=== PATIENT | female | born 1960 | race Caucasian/White ===

== ENCOUNTER 2021-06-12 01:27 | Day surgery (SDC) | payer BC, SELFPAY ==
[2021-05-28 10:53] VITALS: BMI 34.5
--- NOTE | 2021-06-11 12:59 | P.HP_ITS ---
History of Present Illness History of Present Illness Consent: Risks, benefits, and alternatives have been discussed and questions answered. Patient agrees to proceed with procedure. Chief complaint: hx of colon polyps Narrative: Candice Diaz is a 60 year old female here for colon cancer screening. 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 Spiritual care concerns: No Meds Home Medications and Allergies Home Medications Medication Instructions Recorded Confirmed Type aspirin 81 mg tablet,delayed 81 mg PO DAILY 02/06/20 05/28/21 History release fenofibrate 160 mg tablet 160 mg PO DAILY 02/06/20 05/28/21 History metformin 1,000 mg tablet 1,000 mg PO DAILY 02/06/20 05/28/21 History metoprolol tartrate 50 mg tablet 50 mg PO BID 02/06/20 05/28/21 History simvastatin 40 mg tablet 40 mg PO DAILY 02/06/20 05/28/21 History triamterene 37.5 1 cap PO DAILY 02/06/20 05/28/21 History mg-hydrochlorothiazide 25 mg capsule calcium carbonate-vitamin D3 600 1 tablet PO DAILY 02/07/20 05/28/21 History mg (1,500 mg)-800 unit tablet cinnamon bark 500 mg capsule 1,000 mg PO DAILY cap 02/07/20 05/28/21 History triamterene-hydrochlorothiazid tablet 05/28/21 History Allergies Allergy/AdvReac Type Severity Reaction Status Date / Time Penicillins Allergy Intermediate Unknown Verified 06/12/21 06:20 epinephrine Allergy Mild Unknown Verified 06/12/21 06:20 [From Xylocaine with Epinephrine] lidocaine Allergy Mild Unknown Verified 06/12/21 06:20 [From Xylocaine with Epinephrine] Exam Resp: Auscultation: clear to auscultation bilaterally Cardio: Rate: regular rate Rhythm: regular rhythm GI: GI Palp: Yes Soft to palpation and No Tenderness to palpation present (GI) Assessment and Plan Assessment and plan (1) Colon cancer screening: Code(s): Z12.11 - Encounter for screening for malignant neoplasm of colon Status: Acute Assessment and Plan: Colonoscopy with possible biopsy or polypectomy or cautery or injection of substances.
[2021-06-12 06:22] VITALS: BP 118/71; PULSE 64; RESP 18; TEMP 36.9; O2SAT 98; BMI 34.5
[2021-06-12] MEDS: LACTATED RINGERS 1,000 ML 150 ML IV CONT (06:35)
[2021-06-12 06:40] LABS: Glucose Point of Care 146 mg/dl (65-105)
--- NOTE | 2021-06-12 07:16 | WPDANESEPPF ---
Anes - Initial Pre Proc Eval Procedure: Operation Date: 06/12/21 07:30 Proposed Procedures p Screening Colonoscopy - Jet Simental MD Date/Time: 06/12/21 07:16 Surgeon: Jet Simental MD Pre Op Diagnosis: hx of colon polyps Patient Data Age: 60 Gender: F Height: 1.7 m Weight: 100 kg Last Vital Signs Temp 98.4 F 06/12/21 06:22 Pulse 64 06/12/21 06:22 Resp 18 06/12/21 06:22 BP 118/71 06/12/21 06:22 Pulse Ox 98 06/12/21 06:22 Allergies Allergy/AdvReac Type Severity Reaction Status Date / Time Penicillins Allergy Intermediate Unknown Verified 06/12/21 06:20 epinephrine Allergy Mild Unknown Verified 06/12/21 06:20 [From Xylocaine with Epinephrine] lidocaine Allergy Mild Unknown Verified 06/12/21 06:20 [From Xylocaine with Epinephrine] Home Medications Medication Instructions Recorded Confirmed Type aspirin 81 mg tablet,delayed 81 mg PO DAILY 02/06/20 05/28/21 History release fenofibrate 160 mg tablet 160 mg PO DAILY 02/06/20 05/28/21 History metformin 1,000 mg tablet 1,000 mg PO DAILY 02/06/20 05/28/21 History metoprolol tartrate 50 mg tablet 50 mg PO BID 02/06/20 05/28/21 History simvastatin 40 mg tablet 40 mg PO DAILY 02/06/20 05/28/21 History triamterene 37.5 1 cap PO DAILY 02/06/20 05/28/21 History mg-hydrochlorothiazide 25 mg capsule calcium carbonate-vitamin D3 600 1 tablet PO DAILY 02/07/20 05/28/21 History mg (1,500 mg)-800 unit tablet cinnamon bark 500 mg capsule 1,000 mg PO DAILY cap 02/07/20 05/28/21 History triamterene-hydrochlorothiazid tablet 05/28/21 History Laboratory Tests 06/12/21 06:30 POC Capillary Glucose 146 mg/dl H mg/dl (65-105) Patient hx anesthesia problems: none Family hx anesthesia problems: none Results Review: All pre-operative results and documents have been reviewed as part of the pre-operative evaluation. 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 Informed Consent: The patient's anesthetic plan and its attendant risks and benefits were discussed with the patient/family/POA. Questions were solicited and answers provided to the satisfaction of the patient/family/POA.
[2021-06-12 07:58] VITALS: BP 99/55; PULSE 72; RESP 18; O2SAT 95
[2021-06-12 08:08] VITALS: BP 101/51; PULSE 67; RESP 22; O2SAT 97
[2021-06-12 08:18] VITALS: BP 120/67; PULSE 65; RESP 18; O2SAT 96
== END 2021-06-12 08:23 | disposition home or self-care (01) ==
PROVIDERS: PCP Internal Medicine; Visit Provider Internal Medicine Gastroenterology
PROC: 0DJD8ZZ Inspection of Lower Intestinal Tract, Via Natural or Artificial Opening Endoscopic (ICD-10-PCS; CPT 45378; principal; 2021-06-12 07:30)
DX: Z12.11 Encounter for screening for malignant neoplasm of colon (principal); K57.30 Diverticulosis of large intestine without perforation or abscess without bleeding; K63.5 Polyp of colon; D12.2 Benign neoplasm of ascending colon; Z79.82 Long term (current) use of aspirin; Z79.84 Long term (current) use of oral hypoglycemic drugs; E78.49 Other hyperlipidemia; I10 Essential (primary) hypertension; K76.0 Fatty (change of) liver, not elsewhere classified; E66.9 Obesity, unspecified; Z68.34 Body mass index [BMI] 34.0-34.9, adult
CPT/HCPCS: 45385; 45381; 82948; 88305; J2001; J2704; J7120

== ENCOUNTER 2023-07-21 10:00 | Outpatient (RCR) | payer BC, SELFPAY ==
--- NOTE | 2023-06-23 11:09 | PTOPEVAL1 ---
Assessment and note entered by Cinthia Rios, PT, DPT Evaluation Information Assessment Status Evaluation Diagnosis L sciatic nerve pain Onset 1 year Subjective Information Pt states her L sciatic nerve is irritating her badly. Pt states she has had the pain for about a year and it has gotten worse recently. She states she was given an injection and was put on prednisone, and is only taking 1200mg of ibuprofen daily, which has helped but its still there. Pt is very active around her home and she helps to take care of her mom. Pt states she cannot walk through the grocery store without an increase in pain. Reported Pain Level Pain Score 3: Self Report Assessment PT Clinical Summary Candice presents to therapy today for her initial evaluation with a diagnosis of L side sciatic nerve pain. Today she demonstrates mild hip weakness yvette and increased resistance with passive L sided hip motion. She ambulates with gait deviations including decreased gait speed, decreased active hip extension, and decreased stride length from expected. Skilled therapy services are indicated to address the compensations and deficits noted above from her chronic hip pain. Plan of Care Interventions Electrical Stimulation,Gait Training,Hot Pack/Cold Pack,Manual Therapy,Neuro Re-education,Patient/ Caregiver Educati,Therapeutic Activities, Therapeutic Exercise PT Services Indicated Yes Treatment Frequency and 1x/wk for 4 visits Duration These treatments will address the objective and functional deficits as defined above. The patient will be advanced safely and appropriately in order for the patient to progress towards his/her prior level of function. Additional exercises will be introduced and as well as a comprehensive home exercise program upon discharge, if needed, ?to ensure carryover of functional gains achieved in the clinic. This treatment plan has been reviewed and agreement upon by the patient.
--- NOTE | 2023-06-23 11:09 | OPREHPOC ---
Outpatient Therapy Plan of Care This is a Multidisciplinary Plan of Care that may contain components documented by all disciplines (PT, OT, and ST.) PT Problem 1 PT Problem #1 Knowledge Deficit PT Goal 1 Goal Pt to be IND with issued HEP Target Visit 4 PT Problem 2 PT Problem #2 Pain PT Goal 1 Goal Pt to report L sided leg pain no greater than 3/10 in the last week. Target Visit 4 PT Goal 2 Goal Pt to report 75% improvement in overall symptoms. Target Visit 4 PT Problem 3 PT Problem #3 Impaired Sensation PT Goal 1 Goal Pt to decline radicular symptoms in the last week Target Visit 4 PT Problem 4 PT Problem #4 Impaired Strength PT Goal 1 Goal Pt to improve yvette hip strength to grossly 4/5 Target Visit 4 PT Goal 2 Goal Pt to demonstrate a 20lb lift and carry without an increase in symptoms. Target Visit 4 PT Problem 5 PT Problem #5 Pain PT Goal 1 Goal Pt to be able to go grocery shopping without an increase in pain. Target Visit 4
--- NOTE | 2023-07-21 10:41 | PTOPDC ---
Assessment and note entered by Cinthia Rios, PT, DPT Evaluation Information Assessment Status Discharge Diagnosis L sciatic nerve pain Onset 1 year Subjective Information Pt states therapy has been terrific, she states she has learned so much. She states she has been able to wean off the pain medication most of the time. She has been able to work around the house more, and for longer periods of time before needing to sit and rest. Pt reports 90% improvement in overall symptoms. Reported Pain Level Pain Score 2: Self Report Assessment PT Clinical Summary Candice presents to therapy today for her progress report following 5 visits of skilled therapy to treat her diagnosis of L side sciatic nerve pain. Today she demonstrates improve L hip mobility and strength. She has met or progressed well towards her therapy goals, reports 90% improvement overall. She no longer requires skilled therapy services and will be discharged at this time. She was educted to continue her HEP upon discharge. Plan of Care PT Services Indicated No
== END 2023-07-22 11:51 | disposition home or self-care (01) ==
LOC: ANHGOSHPT 10:00
PROVIDERS: PCP Internal Medicine; Visit Provider Physician Assistant Surgical
DX: M53.3 Sacrococcygeal disorders, not elsewhere classified (principal)
CPT/HCPCS: 97014; 97110; 97140; 97161; 97530; G0283

== ENCOUNTER 2023-12-25 07:50 | Outpatient (CLI) | payer OTHER, SELFPAY ==
--- NOTE | 2023-12-25 08:46 | ECG_ITS ---
SEE SCANNED COPY FOR CONFIRMED REPORT MTDD
[2023-12-25 09:25] LABS: Basophils Absolute Auto 0.1 K/mm3 (0.0-0.1); Basophils Percent Auto 0.5 % (0.2-1.2); Eosinophils Absolute Auto 0.2 K/mm3 (0-0.3); Eosinophils Percent Auto 1.2 % (0-4.4); Hematocrit 47.1 % (37.0-47.0); Immature Granulocyte Absolute 0.07 K/mm3 (0.00-0.031); Immature Granulocyte Percent A 0.6 % (0-0.5); Lymphocytes Absolute Auto 3.99 K/mm3 (0.9-3.2); Lymphocytes Percent Auto 31.5 % (18.3-44.2); Mean Corpuscular Volume 94.2 fl (80-100); Mean Platelet Volume 9.5 fl (7.4-10.4); Monocytes Percent Auto 7.8 % (2.6-8.5); Neutrophils Absolute Auto 7.4 K/mm3 (1.3-6.7); Neutrophils Percent Auto 58.4 % (45.5-73.1); Platelet Count Result 297 k/mm3 (150-375); White Blood Count 12.7 K/mm3 (4.5-10.0)
[2023-12-25 09:33] LABS: Albumin Level 4.7 g/dL (3.5-5.1)
[2023-12-25 09:37] LABS: Anion Gap 6 mmol/L (4-12); Blood Urea Nitrogen 15 mg/dL (7-17); Calcium 9.5 mg/dL (8.4-10.2); Carbon Dioxide 31 mmol/L (22-30); Chloride 100 mmol/L (98-107); Estimated Glomerular Filt Rate > 60; Glucose 110 mg/dL (65-110); Potassium 3.7 mmol/L (3.4-5.0); Sodium 137 mmol/L (137-145)
[2023-12-25 09:44] LABS: Urine Cotinine POSITIVE
[2023-12-25 10:11] LABS: Hemoglobin A1C 6.9 % (<5.7)
== END 2023-12-25 07:51 | disposition home or self-care (01) ==
LOC: ANHSURGERY 07:54
PROVIDERS: Anesthesiology; PCP Internal Medicine; Visit Provider Orthopaedic Surgery
DX: Z01.818 Encounter for other preprocedural examination (principal); E11.9 Type 2 diabetes mellitus without complications; M16.12 Unilateral primary osteoarthritis, left hip; I45.19 Other right bundle-branch block
CPT/HCPCS: 36415; 80048; 80307; 82040; 83036; 85025; 86850; 86900; 86901; 93005

== ENCOUNTER 2024-02-12 09:29 | Outpatient (CLI) | payer OTHER, SELFPAY ==
[2024-02-12 10:17] LABS: Urine Cotinine NEGATIVE
== END 2024-02-12 09:30 | disposition home or self-care (01) ==
LOC: ANHSURGERY 09:31
PROVIDERS: PCP Internal Medicine; Visit Provider Orthopaedic Surgery
DX: M16.12 Unilateral primary osteoarthritis, left hip (principal); Z01.818 Encounter for other preprocedural examination
CPT/HCPCS: 80307

== ENCOUNTER 2024-02-15 01:12 | Day surgery (SDC) | payer OTHER, SELFPAY ==
[2023-12-25 08:02] VITALS: BMI 33.4
--- NOTE | 2023-12-25 08:22 | PC.NURSE ---
Report to the Outpatient Waiting Room, entrance under the green pavilion located off [facility], at time ___6:00 AM____ on date __01/06/24 . Planned Procedure Time: __7:30 AM . Time changes happen often and if your time is changed the preop area will call you the afternoon before. - You and your visitor will be asked to self-screen and do not enter if you have any COVID symptoms. - A mask is optional within the hospital at this time. Patients may have clear liquids (water, carbonated beverages, clear teas, apple juice) until 3 hours prior to surgery ( 4:30 AM)with a maximum of 20 ounces. - No food from midnight until time of surgery - Infants may have breast milk until 4 hours before surgery, infant formula 6 hours prior to surgery. - Children will be allowed to drink immediately following surgery. If applicable, please bring a bottle or sippy cup to assist with drinking. Juice, water, soda, and popsicles are readily available. For infants on formula, please bring formula the day of surgery. Pacifiers are allowed. Take the following medications with a SIP of water the morning of surgery: _METOPROLOL DO NOT STOP ANY OF YOUR OTHER PRESCRIPTION MEDICATIONS PRIOR TO SURGERY ?EXCEPT THE FOLLOWING Medications to discontinue per physician ___PT TO CALL DR PORRAS WHEN TO HOLD ADVIL. MAY TAKE TYLENOL IF NEEDED FOR PAIN__HOLD ALL VITAMINS AND SUPPLEMENTS 3 DAYS PRE O P.LAST DOSE 01/02/24 Please no make-up, nail maltese, hairspray, perfume, deodorant, or body powder the day of surgery. No jewelry (including any body piercings) or valuables the day of surgery, leave them at home. Please take a shower or bath the night before, or the morning of, surgery with an antibacterial soap. Wear comfortable, loose fitting clothing. Children are encouraged to wear pajamas. - Jewelry must be removed prior to entering the operating room. Rings and piercings that are not removed may be cut off. - The hospital will not accept responsibility for valuables. - Please leave all valuables, including medications, at home the day of surgery. If you are going home after surgery, a licensed seasonal driver must drive you home. - NO public transportation without another adult if you receive anesthesia. - We recommend that an adult stay with you for 24 hours following discharge. - We also recommend that you do not drive, make important decision, drink alcoholic beverages, or take any drugs that were not prescribed by your health care provider for at least 24 hours after your discharge time. Follow any additional instructions given to you from your surgeon. If you or anyone in your household have experienced Covid symptoms in the past week, please notify your surgeon or the nurse liaison at the phone number below for possible testing. VERBAL AND WRITTEN instructions given to ____PATIENT and asked if any additional questions and then verbalized understanding. Patient advised to call surgeon office or pre surgery nurse liaison [phone] if any additional questions.
[2023-12-25 08:47] VITALS: BP 118/72; PULSE 71; RESP 18; TEMP 37.2; O2SAT 97
--- NOTE | 2024-02-03 13:46 | PC.NURSE ---
Report to the Outpatient Waiting Room, entrance under the green pavilion located off [facility], at time __600AM on date __02/15/24 . Planned Procedure Time: _7:30 AM . Time changes happen often and if your time is changed the preop area will call you the afternoon before. - You and your visitor will be asked to self-screen and do not enter if you have any COVID symptoms. - A mask is optional within the hospital at this time. Patients may have clear liquids (water, carbonated beverages, clear teas, apple juice) until 3 hours prior to surgery( 4:30 AM) with a maximum of 20 ounces. - No food from midnight until time of surgery - Infants may have breast milk until 4 hours before surgery, infant formula 6 hours prior to surgery. - Children will be allowed to drink immediately following surgery. If applicable, please bring a bottle or sippy cup to assist with drinking. Juice, water, soda, and popsicles are readily available. For infants on formula, please bring formula the day of surgery. Pacifiers are allowed. Take the following medications with a SIP of water the morning of surgery: ____METOPROLOL,PREDNISONE DO NOT STOP ANY OF YOUR OTHER PRESCRIPTION MEDICATIONS PRIOR TO SURGERY ?EXCEPT THE FOLLOWING Medications to discontinue per physician ___ADVIL PER DR PORRAS. HOLD ALL VITAMINS AND SUPPLEMENTS 3 DAYS PRE OP.LAST DOSE 02/11/24___MAY TAKE TYLENOL IF NEEDED FOR PAIN Please no make-up, nail uzbek, hairspray, perfume, deodorant, or body powder the day of surgery. No jewelry (including any body piercings) or valuables the day of surgery, leave them at home. Please take a shower or bath the night before, or the morning of, surgery with an antibacterial soap. Wear comfortable, loose fitting clothing. Children are encouraged to wear pajamas. - Jewelry must be removed prior to entering the operating room. Rings and piercings that are not removed may be cut off. - The hospital will not accept responsibility for valuables. - Please leave all valuables, including medications, at home the day of surgery. If you are going home after surgery, a licensed driver starting gate must drive you home. - NO public transportation without another adult if you receive anesthesia. - We recommend that an adult stay with you for 24 hours following discharge. - We also recommend that you do not drive, make important decision, drink alcoholic beverages, or take any drugs that were not prescribed by your health care provider for at least 24 hours after your discharge time. For Pediatric surgeries, we recommend two adults accompany the child home. Follow any additional instructions given to you from your surgeon. If you or anyone in your household have experienced Covid symptoms in the past week, please notify your surgeon or the nurse liaison at the phone number below for possible testing. Telephone instructions given to _PATIENT and asked if any additional questions and then verbalized understanding. Patient advised to call surgeon office or pre surgery nurse liaison [phone] if any additional questions.
[2024-02-03 15:08] VITALS: BMI 33.4
--- NOTE | 2024-02-03 15:09 | PC.NURSE ---
PT STATES NO CHANGE IN HEALTH HX SINCE LAST INTERVIEW 12/25/23 STATES STOPPED CHEWING NICOTINE GUM 12/28/23 NEVER SMOKED CIGARETTES- LIKED THE TASTE OF NICOTINE GUM
--- NOTE | 2024-02-09 12:33 | PM.IMHP ---
H&P: HPI History of Present Illness Date/Time: 02/09/24 12:33 Chief Complaint: Patient has left hip pain secondary to osteoarthritis of her left hip. She has failed conservative treatment like to proceed with hip replacement surgery. Review of Systems Musculoskeletal: Musculoskeletal: Reports back pain, Reports arthralgias, Reports joint swelling and Reports stiffness [facility] Past Medical History Medical History Chronic left hip pain Hyperlipemia Hypertension Steatosis of liver Surgical History Surgical History History of right knee surgery History of spinal surgery 2014 Family History Family History Father Diabetes mellitus Social History Social History Smoking status: Never smoker Additional smoking assessment comments: STATES CHEWED NICOTINE GUM (LIKED THE TASTE)LAST CHEWED GUM 12/28/23 Alcohol intake: current Drinks per week: 2 Alcohol use details: occasional Substance use: never Substance use type: does not use Do You Feel Safe in your Home?: Yes Lack of Transportation: No Lack of Food: Never True Current Housing: I Have Housing Concerned About Future Housing: No Difficulty Paying Gas/Electric Bills: No Difficulty Paying for Meds: No Currently Unemployed: No Education: High School Diploma/GED Difficulty w/ Childcare or Family Care: No Living arrangements: with family Additional living arrangements comments: - Patrick Occupation/Education: occupation 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 Spiritual care concerns: No Meds Home Medications and Allergies Home Medications Medication Instructions Recorded Confirmed Type fenofibrate 160 mg tablet 160 mg PO DAILY 02/06/20 02/03/24 History metformin 1,000 mg tablet 1,000 mg PO BID 02/06/20 02/03/24 History metoprolol tartrate 50 mg tablet 50 mg PO QAM 02/06/20 02/03/24 History triamterene 37.5 1 cap PO DAILY 02/06/20 02/03/24 History mg-hydrochlorothiazide 25 mg capsule cinnamon bark 500 mg capsule 1,000 mg PO DAILY 02/07/20 02/03/24 History (Cinnamon) empagliflozin 25 mg tablet 25 mg PO DAILY 11/19/23 02/03/24 History (Jardiance) rosuvastatin 40 mg tablet 40 mg PO DAILY 11/19/23 02/03/24 History semaglutide 0.25 mg or 0.5 mg (2 0.25 mg subcut WEEKLY 11/19/23 02/03/24 History mg/3 mL) subcutaneous pen injector (Ozempic) prednisone 10 mg tablet 10 mg PO BID #20 tabs 12/17/23 02/03/24 Rx ibuprofen 200 mg tablet (Advil) 800 mg PO HS PRN Pain 12/25/23 02/03/24 History Allergies Allergy/AdvReac Type Severity Reaction Status Date / Time Penicillins Allergy Intermediate Unknown Verified 02/03/24 13:42 epinephrine Allergy Mild RASH AND Verified 02/03/24 13:42 [From Xylocaine with ITCHING Epinephrine] lidocaine Allergy Mild RASH AND Verified 02/03/24 13:42 [From Xylocaine with ITCHING Epinephrine] Exam Narrative: On exam she has internal rotation of left hip 0 external rotation about 30 a positive Stinchfield test. She walks with an antalgic gait. She has pain with any motion of her hip. Neurologically she is grossly intact. Eyes: General: appearance normal, both eyes and all related structures Neck: Neck: supple Resp: Effort & Inspection: normal respiratory effort Cardio: Rate: regular rate Rhythm: regular rhythm Radiology Reports: Comments: Patient: Candice Diaz Date of Service: 12/17/23 Results of Diagnostic Exam (Interpreted Today) Order: 12/17/23 07:00 XR hip LT 2V w AP pelvis Routine Interpretation: AP lateral left hip with the pelvis he demonstrates [id number] arthritis of the left hip with spurring and sclerosis. This report may have been done utilizing a voice
[2024-02-15] VITALS (19 sets, daily range): BP systolic 119–142; BP diastolic 58–86; PULSE 67–92; RESP 14–22; TEMP 36.3–37.1; O2SAT 91–98
--- NOTE | ~2024-02-15 | XR_ITS ---
EXAMINATION: XR surgery orthopedic DATE: 02/15/2024 09:25 INDICATION: Intraoperative evaluation during left total hip arthroplasty TECHNIQUE: Frontal view of the left hip was obtained. COMPARISON: 12/17/2023 FINDINGS: Intraoperative image during a left total hip arthroplasty demonstrate placement of a a noncemented le ft total hip arthroplasty which is in near anatomic alignment on the single image provided. The aceta bular component is affixed with at least 2 screws. Portions of the pelvis are obscured by a bolster. No fractures in the visualized bones. Expected postoperative soft tissue gas about the left hip. IMPRESSION: 1. Expected appearance during left total hip arthroplasty. Reviewed, dictated and finalized at location A.
[2024-02-15] MEDS: ACETAMINOPHEN 500 MG TABLET 1000 MG PO (06:30)
[2024-02-15 06:45] LABS: Glucose Point of Care 138 mg/dl (65-105)
[2024-02-15] MEDS: LACTATED RINGERS 1,000 ML 30 ML IV CONT ×2 (06:50→09:50)
--- NOTE | 2024-02-15 06:53 | WPDHPUPDATE1 ---
History and Physical Update Update Date/Time: 02/15/24 06:53 History and Physical has been reviewed, including an updated exam of the patient. There are NO changes in the patient's condition. Risks, benefits, and alternatives have been discussed and questions answered. Patient agrees to proceed with procedure.
[2024-02-15] MEDS: VANCOMYCIN 1,500 MG/NS 500 ML BAG 250 MG IVPB (06:54)
[2024-02-15] MEDS: TRANEXAMIC ACID 1,000MG/ISO100 1,000 MG/100 ML BAG 200 MG IVPB (06:57)
--- NOTE | 2024-02-15 07:13 | WPDANESEPPF ---
Anes - Initial Pre Proc Eval Procedure: Operation Date: 02/15/24 07:30 Proposed Procedures p Left Total Hip Arthroplasty - Dexter Hamm MD Date/Time: 02/15/24 07:13 Surgeon: Dexter Hamm MD Pre Op Diagnosis: OA left hip Patient Data Age: 63 Gender: F Height: 1.66 m Weight: 92.6 kg Last Vital Signs Temp 99.0 F 12/25/23 08:47 Pulse 71 12/25/23 08:47 Resp 18 12/25/23 08:47 BP 118/72 12/25/23 08:47 Pulse Ox 97 12/25/23 08:47 O2 Del Method Room Air 12/25/23 08:47 Allergies Allergy/AdvReac Type Severity Reaction Status Date / Time Penicillins Allergy Intermediate Unknown Verified 02/03/24 13:42 epinephrine Allergy Mild RASH AND Verified 02/03/24 13:42 [From Xylocaine with ITCHING Epinephrine] lidocaine Allergy Mild RASH AND Verified 02/03/24 13:42 [From Xylocaine with ITCHING Epinephrine] Home Medications Medication Instructions Recorded Confirmed Type fenofibrate 160 mg tablet 160 mg PO DAILY 02/06/20 02/03/24 History metformin 1,000 mg tablet 1,000 mg PO BID 02/06/20 02/03/24 History metoprolol tartrate 50 mg tablet 50 mg PO QAM 02/06/20 02/03/24 History triamterene 37.5 1 cap PO DAILY 02/06/20 02/03/24 History mg-hydrochlorothiazide 25 mg capsule cinnamon bark 500 mg capsule 1,000 mg PO DAILY 02/07/20 02/03/24 History (Cinnamon) empagliflozin 25 mg tablet 25 mg PO DAILY 11/19/23 02/03/24 History (Jardiance) rosuvastatin 40 mg tablet 40 mg PO DAILY 11/19/23 02/03/24 History semaglutide 0.25 mg or 0.5 mg (2 0.25 mg subcut WEEKLY 11/19/23 02/03/24 History mg/3 mL) subcutaneous pen injector (Ozempic) prednisone 10 mg tablet 10 mg PO BID #20 tabs 12/17/23 02/03/24 Rx ibuprofen 200 mg tablet (Advil) 800 mg PO HS PRN Pain 12/25/23 02/03/24 History rivaroxaban 10 mg tablet (Xarelto) 10 mg PO DAILY PE Prophylaxis s/p 02/12/24 Rx joint replacement #21 tabs Laboratory Tests 02/15/24 06:42 POC Capillary Glucose 138 H mg/dl (65-105) Patient hx anesthesia problems: none Family hx anesthesia problems: none Results Review: All pre-operative results and documents have been reviewed as part of the pre-operative evaluation. [facility] Past Medical History Medical History Chronic left hip pain Hyperlipemia Hypertension Steatosis of liver Surgical History Surgical History History of right knee surgery History of spinal surgery 2014 Family History Family History Father Diabetes mellitus Social History Social History Smoking status: Never smoker Additional smoking assessment comments: STATES CHEWED NICOTINE GUM (LIKED THE TASTE)LAST CHEWED GUM 12/28/23 Alcohol intake: current Drinks per week: 2 Alcohol use details: occasional Substance use: never Substance use type: does not use Do You Feel Safe in your Home?: Yes Lack of Transportation: No Lack of Food: Never True Current Housing: I Have Housing Concerned About Future Housing: No Difficulty Paying Gas/Electric Bills: No Difficulty Paying for Meds: No Currently Unemployed: No Education: High School Diploma/GED Difficulty w/ Childcare or Family Care: No Living arrangements: with family Additional living arrangements comments: - Patrick Occupation/Education: occupation 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
[2024-02-15] MEDS: ceFAZolin 2 GM/D5W 50 ML 2 GM/50 ML BAG IVPB ×3 (07:31→23:16)
--- NOTE | 2024-02-15 09:18 | P.OP_ITS ---
Procedure Note - Detailed Date of Procedure 02/15/24 Pre-op Diagnosis Osteoarthritis LEFT hip Post-op Diagnosis Same Procedure Performed side total hip arthroplasty Surgeon Dexter Hamm MD Labor Standards Director Hoa Richards Anesthesia General Indications Pain and Arthritis Description of Procedure Patient was brought to the operating room #7, and an anesthetic was administered. The patient was placed with the operative Hip up and sterilely p repped and draped in the usual manner. A longitudinal incision was performed. Dissection was carried down to the fascia. A Hardinge type approach was used and the femoral head was dislocated anteriorly. The Femoral head was removed a finger breath above the lesser trochanter. The acetabulum was serially reamed to accept a 54 component. This was impacted into place and secured with 3 25mm screws. A high wall liner was placed. The femur was reamed and broached to accept an 11 component which was impacted into place. A high wall liner was used. A plus 0 head and neck were placed and the hip was put through full range of motion. The hip was noted to be stable. The wounds were then closed in a layered fashion using #5 ethibond, 2 vicryl, 2-0 vicryl and moses. Patient left the operating room in satisfactory condition. Implants [employer]omet Femur (taperlock) Billy Cup Estimated Blood Loss 600 Drains No Packing No Pathology None sent Complications No immediate complications Condition Stable Disposition PACU [facility] Billing Surgery - Charge Forward: Surgery Billing ([id number] Total Hip)
[2024-02-15 09:59] LABS: Glucose Point of Care 149 mg/dl (65-105)
[2024-02-15] MEDS: fentaNYL CITRATE INJ (*CRX) 100 MCG/2 ML VIAL 25 MCG IV PUSH ×4 (10:10→10:52)
[2024-02-15] MEDS: SODIUM CHLORIDE 0.9% IV 1,000 ML 125 ML IV CONT (11:54)
[2024-02-15] MEDS: HYDROmorphone HCL INJ (*CRX) 1 MG/ML SYR IV PUSH ×3 (12:05→19:37)
--- NOTE | 2024-02-15 12:53 | PC.NURSE ---
This patient, Candice Diaz, was admitted to 3 [facility] Surg Room 319-01. Report received from TANO Hurst. Patient/family oriented to hospital policies and general routines including ID bracelet, bed and alarms, visiting hours, pain management, procedures, bathroom and other care routines, personal items, smoking policy, room service/diet, and visiting hours. Information on how to activate the Rapid Response Team has been discussed. Patient/Family are encouraged to report perceived risks to care and to ask questions if they do not understand what they are told or what they should do.
--- NOTE | 2024-02-15 13:19 | WPDCN ---
Assessment and Plan Assessment and plan (1) Osteoarthritis of left hip: Code(s): M16.12 - Unilateral primary osteoarthritis, left hip Status: Acute Assessment and Plan: 02/15/24: Patient is postop day 0 from a left total hip arthroplasty done by Dr. Hamm Continue pain control PT and OT ordered Patient received vancomycin and cefazolin with surgery and will continue cefazolin for 3 bags and then discontinue Will start Xarelto tomorrow at 5:00 p.m. Continue hip precautions Continue incentive spirometer q.2 hours while awake Continue neurovascular checks (2) Hypertension: Code(s): I10 - Essential (primary) hypertension Status: Acute Assessment and Plan: 02/15/24: Blood pressure ranging 128/64 to 140/86 Patient restarted triamterene 37.5 mg/hydrochlorothiazide 25 mg and Metoprolol (3) Hyperlipemia: Code(s): E78.5 - Hyperlipidemia, unspecified Status: Acute Assessment and Plan: 02/15/24: Continue rosuvastatin (4) Diabetes: Code(s): E11.9 - Type 2 diabetes mellitus without complications Status: Acute Assessment and Plan: 02/15/24: Blood sugars ranging 138-149 Hemoglobin A1c 6.9 on 12/25/2023 Accu-Cheks AC and HS Continue metformin Ozempic on hold Low-dose sliding scale insulin ordered Hypoglycemic protocol in place Diabetic diet ordered HPI Data of Consult Date/Time: 02/15/24 13:19 Requesting Physician: Dexter Hamm MD Primary Care Provider: Carlos Domínguez, Consult Narrative Narrative: Candice Diaz is a 63 year old female with a significant past medical history of hyperlipidemia, hypertension, Diabetes, hepatic steatosis who presented to the hospital today for an elective left total hip arthroplasty with Dr. Hamm. We were consulted for medial management. Patient denies any fever, chills, nausea, vomiting, diarrhea, abdominal pain, chest pain, shortness of breath. Patient endorses left hip pain which she rates 7/10 after therapy worked with her. She has no other complaints today. Vital signs are stable, she is afebrile, currently on room air Review of Systems Review of Systems: All systems reviewed & are unremarkable except as noted in HPI and below Constitutional: Constitutional: Reports as per HPI and Reports no additional constitutional complaints Eyes: Eyes: Reports as per HPI and Reports no additional eye complaints ENT: Reports system reviewed and no additional complaints, except as documented and Reports as per HPI Cardiovascular: Cardiovascular: Reports as per HPI and Reports no additional cardiovascular complaints Respiratory: Respiratory: Reports as per HPI and Reports no additional respiratory complaints Gastrointestinal: Gastrointestinal: Reports as per HPI and Reports no additional gastrointestinal complaints Genitourinary: Genitourinary: Reports no additional female genitourinary complaints and Reports as per HPI Musculoskeletal: Musculoskeletal: Reports no additional musculoskeletal complaints and Reports as per HPI Integumentary/Breasts: Skin/Breast: Reports system reviewed and no additional complaints, except as docu and Reports as per HPI Neurologic: Reports system reviewed and no additional complaints, except as documented and Reports as per HPI Psychiatric: Psychiatric: Reports no additional psychiatric complaints and Reports as per HPI [facility] Past Medical History Medical History Chronic left hip pain Diabetes A1C was 7.6 on 01/13/[address] Up office Hyperlipemia Hypertension Steatosis of liver Vitamin D deficiency Surgical History Surgical History (Updated 02/15/24 @ 15:23 by Noemy Figueroa APRN) History of right knee surgery History of spinal surgery 2015 S/P total left hip arthroplasty Family History Family History Father Diabe
[2024-02-15] MEDS: HYDROcodone/acetaminophen (*CRX) 10-325 MG TABLET 1 TAB PO ×2 (15:03→23:15)
[2024-02-15 16:27] LABS: Glucose Point of Care 152 mg/dl (65-105)
[2024-02-15] MEDS: SENNA/DOCUSATE SODIUM TABLET 2 TAB PO (16:36)
[2024-02-15] MEDS: metFORMIN HCL 500 MG TABLET 1000 MG PO (16:37)
[2024-02-15] MEDS: traMADol HCL (*CRX) 50 MG TABLET PO (19:36)
[2024-02-15 20:45] LABS: Glucose Point of Care 182 mg/dl (65-105)
[2024-02-15] MEDS: METOPROLOL TARTRATE 50 MG TAB PO (21:07)
[2024-02-16 04:35] VITALS: BP 103/42; PULSE 78; RESP 18; TEMP 36.2; O2SAT 95
[2024-02-16] MEDS: HYDROcodone/acetaminophen (*CRX) 10-325 MG TABLET 1 TAB PO ×2 (04:45→08:23)
[2024-02-16 05:56] LABS: Basophils Percent Auto 0.3 % (0.2-1.2); Eosinophils Percent Auto 0.2 % (0-4.4); Hematocrit 35.6 % (37.0-47.0); Hemoglobin 11.7 g/dL (12.0-15.0); Immature Granulocyte Absolute 0.04 K/mm3 (0.00-0.031); Immature Granulocyte Percent A 0.4 % (0-0.5); Lymphocytes Absolute Auto 1.86 K/mm3 (0.9-3.2); Lymphocytes Percent Auto 18.5 % (18.3-44.2); Mean Corpuscular HGB Conc 32.9 g/dl (32-36); Mean Corpuscular Hemoglobin 32.3 pg (26-34); Mean Corpuscular Volume 98.3 fl (80-100); Mean Platelet Volume 9.7 fl (7.4-10.4); Monocytes Absolute Auto 1.1 K/mm3 (0.1-0.6); Monocytes Percent Auto 11.1 % (2.6-8.5); Neutrophils Percent Auto 69.5 % (45.5-73.1); Platelet Count Result 186 k/mm3 (150-375); Red Blood Count 3.62 M/mm3 (4.2-5.4); White Blood Count 10.1 K/mm3 (4.5-10.0)
[2024-02-16] MEDS: ceFAZolin 2 GM/D5W 50 ML 2 GM/50 ML BAG IVPB (05:59)
[2024-02-16 06:08] LABS: Anion Gap 7 mmol/L (4-12); Blood Urea Nitrogen 15 mg/dL (7-17); Calcium 8.7 mg/dL (8.4-10.2); Carbon Dioxide 25 mmol/L (22-30); Chloride 103 mmol/L (98-107); Estimated CRCL calculation 91 ml/min; Estimated Glomerular Filt Rate > 60; Glucose 137 mg/dL (65-110); Sodium 135 mmol/L (137-145)
--- NOTE | 2024-02-16 06:36 | PM.PNORT ---
Progress Note: A&P Assessment and Plan (1) S/P total left hip arthroplasty: Code(s): Z96.642 - Presence of left artificial hip joint Status: Acute Assessment and Plan: Patient underwent Left Total Hip Arthroplasty for osteoarthritis. Doing well. Ambulate today and dismiss if able to walk. Subjective Subjective Date/Time Seen: 02/16/24 06:36 Post Op day: 1 Principal diagnosis: Left Total Hip for Osteoarthritis Review of Systems Musculoskeletal: Musculoskeletal: Reports back pain, Reports arthralgias, Reports joint swelling and Reports stiffness Exam Narrative: Wiggles toes. Dressing intact. Resp: Effort & Inspection: normal respiratory effort Cardio: Rate: regular rate Rhythm: regular rhythm Objective Data Vital Signs Vital Signs: Vital Signs - 24 hr 02/15/24 09:50 02/15/24 10:05 02/15/24 10:20 Temperature 98.3 F Pulse Rate 76 79 83 Respiratory Rate 15 16 18 Blood Pressure 122/58 L 124/76 134/69 Pulse Oximetry 94 98 94 Oxygen Delivery Simple Face Mask Simple Face Mask Nasal Cannula Oxygen Flow Rate 8 8 3 02/15/24 10:35 02/15/24 10:50 02/15/24 11:05 Temperature Pulse Rate 75 71 72 Respiratory Rate 16 14 16 Blood Pressure 142/70 H 124/67 133/71 Pulse Oximetry 95 92 94 Oxygen Delivery Nasal Cannula Nasal Cannula Nasal Cannula Oxygen Flow Rate 3 3 3 02/15/24 11:15 02/15/24 11:30 02/15/24 11:45 Temperature 97.3 F L 97.3 F L Pulse Rate 78 77 82 Respiratory Rate 16 16 16 Blood Pressure 140/86 128/64 123/64 Pulse Oximetry 95 92 91 Oxygen Delivery Nasal Cannula Oxygen Flow Rate 3 02/15/24 12:15 02/15/24 13:09 02/15/24 13:15 Temperature 97.3 F L 97.3 F L Pulse Rate 67 78 Respiratory Rate 16 16 Blood Pressure 126/64 124/62 Pulse Oximetry 92 93 Oxygen Delivery Room Air Oxygen Flow Rate 02/15/24 15:30 02/15/24 15:31 02/15/24 17:04 Temperature Pulse Rate Respiratory Rate Blood Pressure Pulse Oximetry 91 94 96 Oxygen Delivery Room Air Nasal Cannula Room Air Oxygen Flow Rate 1 02/15/24 17:00 02/15/24 21:07 02/15/24 20:25 Temperature 97.9 F 97.7 F Pulse Rate 81 92 92 Respiratory Rate 16 20 Blood Pressure 125/64 119/65 Pulse Oximetry 92 94 Oxygen Delivery Oxygen Flow Rate 02/15/24 20:00 02/15/24 23:30 02/16/24 04:35 Temperature 98.7 F 97.1 F L Pulse Rate 78 78 Respiratory Rate 22 H 18 Blood Pressure 119/62 103/42 L Pulse Oximetry 93 95 Oxygen Delivery Room Air Oxygen Flow Rate Intake/Output Intake/Output: Intake & Output 02/13/24 02/14/24 02/15/24 02/16/24 23:59 23:59 23:59 23:59 Intake Total 1410 2250 Balance 1410 2250 Meds/Results Medications: Active Medications Generic Name Dose Route Start Last Admin Trade Name Freq PRN Reason Stop Dose Admin Hydrocodone Bitart/Acetaminophen 1 tab 02/15/24 11:19 Hydrocodone/Acetaminophen (*Crx) 5-325 Mg Tablet PO Q4H PRN Pain Rated 4-6 Hydrocodone Bitart/Acetaminophen 1 tab 02/15/24 11:19 02/16/24 04:45 Hydrocodone/Acetaminophen (*Crx) 10-325 Mg Tablet PO 1 tab Q4H PRN Administration Pain Rated 7-10 Celecoxib 200 mg 02/16/24 09:00 Celecoxib 200 Mg Capsule PO DAILY [facility] Cyclobenzaprine HCl 10 mg 02/15/24 11:19 Cyclobenzaprine Hcl 10 Mg Tablet PO Q8H PRN Muscle Spasm Dextrose 12.5 gm 02/15/24 13:30 Dextrose 50% 25 Gm/50 Ml Syringe IV PUSH PRN PRN Hypoglycemia Protocol Empagliflozin 25 mg 02/16/24 09:00 Empagliflozin 25 Mg Tablet PO DAILY [facility] Fenofibrate 160 mg 02/16/24 09:00 Fenofibrate 160 Mg Tablet PO DAILY [facility] Glucagon 1 mg 02/15/24 13:30 Glucagon For Inj 1 Mg Vial IM PRN PRN Hypoglycemia Protocol Glucose 15 gm 02/15/24 13:30 Glucose Oral Gel 15 Gm Of Glucse In 37.5 Gm Tube PO PRN PRN Hypoglycemia Protocol Hydromorphone HCl 1 mg 02/15/24 11:19 02/15/24 19:37 Hydromor
--- NOTE | 2024-02-16 06:38 | PM.DS ---
DS: Admitting Diagnosis Discharge Date 02/16/2024 Admitting Diagnosis Left Hip Osteoarthritis DS: Discharge Diagnosis Discharge Diagnosis (1) S/P total left hip arthroplasty: Code(s): Z96.642 - Presence of left artificial hip joint Status: Acute Assessment and Plan: Patient underwent LEFT Total Hip Arthroplasty for osteoarthritis. Following a typical postop course. Ambulate today DS: Summary Hospital Course Hospital Course: Patient underwent total hip arthroplasty for osteoarthritis on the left. She is followed typical course will be dismissed this afternoon some she is able to walk. Overall she is doing well. Status at Discharge Functional status at discharge: uses cane/walker Time Spent with Patient Time attestation: Total time spent providing and/or coordinating discharge services: DS: Data Data Completed and Pending Labs on day of discharge: Labs from last 24 hours 02/16/24 02/15/24 02/15/24 05:39 20:36 16:23 WBC 10.1 H RBC 3.62 L Hgb 11.7 L D Hct 35.6 L MCV 98.3 MCH 32.3 MCHC 32.9 RDW 13.0 Plt Count 186 MPV 9.7 Immature Gran % (Auto) 0.4 Neut % (Auto) 69.5 Lymph % (Auto) 18.5 [place] % (Auto) 11.1 H Eos % (Auto) 0.2 Baso % (Auto) 0.3 Lymph # (Auto) 1.86 [place] # (Auto) 1.1 H Eos # (Auto) 0.0 Baso # (Auto) 0.0 Abs Immat Gran (auto) 0.04 H Absolute Neuts (auto) 7.0 H Absolute Nucleated RBC 0.000 Nucleated RBC % 0.0 Sodium 135 L Potassium 4.0 Chloride 103 Carbon Dioxide 25 Anion Gap 7 BUN 15 Creatinine 0.60 L Estim Creat Clear Calc 91 Estimated GFR > 60 Glucose 137 H POC Capillary Glucose 182 H 152 H Calcium 8.7 02/15/24 02/15/24 09:57 06:42 WBC RBC Hgb Hct MCV MCH MCHC RDW Plt Count MPV Immature Gran % (Auto) Neut % (Auto) Lymph % (Auto) [place] % (Auto) Eos % (Auto) Baso % (Auto) Lymph # (Auto) [place] # (Auto) Eos # (Auto) Baso # (Auto) Abs Immat Gran (auto) Absolute Neuts (auto) Absolute Nucleated RBC Nucleated RBC % Sodium Potassium Chloride Carbon Dioxide Anion Gap BUN Creatinine Estim Creat Clear Calc Estimated GFR Glucose POC Capillary Glucose 149 H 138 H Calcium Discharge Plan Discharge Patient Disposition: Home, Self-Care Discharge Instructions: Dr. Dexter Hamm M.D [address] [place] [address] POST-OPERATIVE DISCHARGE INSTRUCTIONS TOTAL HIP ARTHROPLASTY 1. Move toes/feet up and down every hour while awake. 2. Be up walking every hour while awake. 3. Use walker time clerk if instructed to use walker time clerk.When you are allowed to use the cane, use the cane in the opposite hand. 4. When resting, do not rest in the chair. Rather, lie on your back, with back flat, and the leg elevated above heart to minimize swelling. You may put a pillow under your head. Do not rest in a chair. Resting in the chair results in swelling in the leg. Significant swelling could indicate a blood clot and if this occurs, call the office (or go to the ER) to have a venous ultrasound performed. Its ok to sit in the chair to eat and use the toilet and to receive a guest but sitting in a chair will cause your leg to swell. so try to minimize sitting in a chair. 5. Wound Care: Apply a folded 4x4 sponge to incision and hold with crossing strips of 1 inch Transpore tape. 6. Follow weight bearing status as instructed: 7. May shower. Remove dressing before shower and reapply dressing after shower. Patient Instructions: Rivaroxaban (By mouth), Safe Use of Anticoagulants (DC) Follow-up/Referrals: Dexter Hamm MD [Physician] - Discharge Medications: New hydrocodone-acetaminophen 7.5-325 mg tablet 1 tablet PO Q4H PRN (Reason: pain) Qty: 40 0RF doxycycline hyclate 100 mg tablet 100 mg PO DAILY Qty: 10 0RF Co
[2024-02-16 07:44] LABS: Glucose Point of Care 185 mg/dl (65-105)
[2024-02-16 08:00] VITALS: BP 124/68; PULSE 64; RESP 16; TEMP 36.6; O2SAT 94
[2024-02-16] MEDS: SENNA/DOCUSATE SODIUM TABLET 2 TAB PO (08:21)
[2024-02-16 08:22] VITALS: PULSE 78
[2024-02-16] MEDS: polyethylene glycoL 3350 17 GM POWD.PACK PO (08:22)
[2024-02-16] MEDS: ROSUVASTATIN 20 MG TABLET 40 MG PO (08:22)
[2024-02-16] MEDS: FENOFIBRATE 160 MG TABLET PO (08:22)
[2024-02-16] MEDS: CELECOXIB 200 MG CAPSULE PO (08:22)
[2024-02-16] MEDS: CYCLOBENZAPRINE HCL 10 MG TABLET PO (08:22)
[2024-02-16] MEDS: EMPAGLIFLOZIN 25 MG TABLET PO (08:22)
[2024-02-16] MEDS: METOPROLOL TARTRATE 50 MG TAB PO (08:22)
[2024-02-16] MEDS: IBUPROFEN IV 800 MG/200 ML 800 MG/200 ML BAG 400 MG IVPB (08:26)
[2024-02-16] MEDS: TRIAMTERENE 37.5 MG/HCTZ 25 MG (MAXZIDE) TABLET 1 TAB PO (08:35)
[2024-02-16] MEDS: metFORMIN HCL 500 MG TABLET 1000 MG PO (08:35)
--- NOTE | 2024-02-16 09:41 | WPDANESPN ---
Anes - Prog Note Post-Op Date/Time: 02/16/24 09:41 Cardiovascular status: normal Respiratory status: normal Airway patency: baseline Mental status: baseline Post-Op hydration status: normal Vital Signs: Last Vital Signs Temp 36.6 C 02/16/24 08:00 Pulse 78 02/16/24 08:22 Resp 16 02/16/24 08:00 BP 124/68 02/16/24 08:00 Pulse Ox 94 02/16/24 08:00 O2 Del Method Room Air 02/16/24 08:00 O2 Flow Rate 1 02/15/24 15:31 Pain Score (VAS): 11/17 I/O: Intake & Output 02/15/24 02/16/24 02/16/24 23:59 07:59 15:59 Intake Total 770 2300 240 Balance 770 2300 240 Laboratory Tests 02/16/24 05:39 02/16/24 05:39 02/15/24 02/15/24 02/15/24 09:57 16:23 20:36 WBC RBC Hgb Hct MCV MCH MCHC RDW Plt Count MPV Immature Gran % (Auto) Neut % (Auto) Lymph % (Auto) Ashley % (Auto) Eos % (Auto) Baso % (Auto) Lymph # (Auto) Ashley # (Auto) Eos # (Auto) Baso # (Auto) Abs Immat Gran (auto) Absolute Neuts (auto) Absolute Nucleated RBC Nucleated RBC % Sodium Potassium Chloride Carbon Dioxide Anion Gap BUN Creatinine Estim Creat Clear Calc Estimated GFR Glucose POC Capillary Glucose 149 H 152 H 182 H Calcium 02/16/24 02/16/24 05:39 07:41 WBC 10.1 H RBC 3.62 L Hgb 11.7 L D Hct 35.6 L MCV 98.3 MCH 32.3 MCHC 32.9 RDW 13.0 Plt Count 186 MPV 9.7 Immature Gran % (Auto) 0.4 Neut % (Auto) 69.5 Lymph % (Auto) 18.5 Ashley % (Auto) 11.1 H Eos % (Auto) 0.2 Baso % (Auto) 0.3 Lymph # (Auto) 1.86 Ashley # (Auto) 1.1 H Eos # (Auto) 0.0 Baso # (Auto) 0.0 Abs Immat Gran (auto) 0.04 H Absolute Neuts (auto) 7.0 H Absolute Nucleated RBC 0.000 Nucleated RBC % 0.0 Sodium 135 L Potassium 4.0 Chloride 103 Carbon Dioxide 25 Anion Gap 7 BUN 15 Creatinine 0.60 L Estim Creat Clear Calc 91 Estimated GFR > 60 Glucose 137 H POC Capillary Glucose 185 H Calcium 8.7 Post-procedural complaints: none Patient Feedback: Patient satisfied with anesthetic care.
== END 2024-02-16 10:43 | disposition home or self-care (01) ==
LOC: ANHSURGERY 05:57 → ANH3MEDSUR 11:27
PROVIDERS: Orthopaedic Surgery; PCP Internal Medicine; Visit Provider Nurse Practitioner Acute Care
PROC: (CPT 27130; principal; 2024-02-15 07:30)
DX: M16.12 Unilateral primary osteoarthritis, left hip (principal); I10 Essential (primary) hypertension; E78.5 Hyperlipidemia, unspecified; E11.9 Type 2 diabetes mellitus without complications; K76.0 Fatty (change of) liver, not elsewhere classified; Z79.84 Long term (current) use of oral hypoglycemic drugs; Z79.85 Long-term (current) use of injectable non-insulin antidiabetic drugs; E66.9 Obesity, unspecified; Z68.34 Body mass index [BMI] 34.0-34.9, adult
CPT/HCPCS: 27130; 36415; 80048; 80307; 82948; 85025; 97110; 97116; 97161; 97165; 97530; 97535; 99199; A9270; C1776; J0690; J1100; J1170; J1741; J2250; J2371; J3010; J3370; J7030; J7120